=== PATIENT | male | born 1995 | race African-American/Black ===

== ENCOUNTER 2017-02-08 19:27 | Inpatient (IN) | payer OTHER ==
--- NOTE | ~2017-02-08 | PN ---
Unit #: [id number] #: [id number] Patient: REMY RAMIREZ [id number] [facility] [address] [place] [address] [id number] I MR#: [id number] NAME: REMY RAMIREZ ROOM: P202 Age: 21 Sex: M Admission Date: 02/08/2017 : 1995 Attending Physician: Sarthak Nash M.D. Admitting Physician: Sarthak Nash M.D. Primary Care Physician: Primary Care Physician Fadia ACOSTA PROGRESS NOTES DATE OF SERVICE 02/11/2017 DISCUSSION Mr. Remy Ramirez is a 21-year-old male. The patient interviewed, chart reviewed. Obtained information from nursing staff. The patient was compliant, cooperative, redirectable. Mood sad, dysphoric, flat affect. The patient reported making progress. Denied any thoughts of harming self or others. Complete Review of Systems: Unremarkable. MENTAL STATUS EXAMINATION General Appearance: The patient dressed casually. Attention span, concentration: Fair. Oriented in time, place, and person. Mood and affect labile. Speech: Monotone. Thought process: [place]. The patient denied any thoughts of harming self or others. Recent and remote memory: Poor. Insight and judgment: Poor. DIAGNOSIS Mood disorder not otherwise specified. ASSESSMENT/PLAN Advised to continue with current medication and therapeutic protocol. If needed, consider further adjustment of medication. Dictated by... Eric Real/placido TD: 02/12/2017 08:54 JOB #: [id number] Unit #: [id number] #: [id number] Patient: REMY RAMIREZ [facility] PROGRESS NOTES Page 1 of 1 X Sarthak Nash MD PROGRESS NOTE
--- NOTE | ~2017-02-08 | PN ---
Unit #: [id number] #: [id number] Patient: REMY RAMIREZ [id number] [facility] [address] [place] [address] [id number] I MR#: [id number] NAME: REMY RAMIREZ ROOM: P202 Age: 21 Sex: M Admission Date: 02/08/2017 : 1995 Attending Physician: Sarthak Nash M.D. Admitting Physician: Sarthak Nash M.D. Primary Care Physician: Primary Care Physician Fadia JACOBO NOTES DATE OF SERVICE: 02/12/2017 DISCUSSION Remy Ramirez is a 21-year-old male, seen on 02/12/2017. The patient interviewed, chart reviewed, and obtained information from nursing staff. The patient was compliant, cooperative, mood is sad, dysphoric, flat affect, guarded. The patient was able to maintain safe behavior. No aggression. Tolerating medication fairly well. REVIEW OF SYSTEMS Complete review of systems unremarkable. MENTAL STATUS EXAMINATION General appearance, the patient dressed casually. Attention span and concentration, fair. Oriented in time, place, and person. Mood and affect, sad and dysphoric. Speech, monotone. Thought process, concrete. The patient denied any thoughts of harming self or others. Recent and remote memory, poor. Insight and judgment, poor. DIAGNOSIS Mood disorder, not otherwise specified. ASSESSMENT AND PLAN Advised to continue with current medication and therapeutic protocol. If needed, consider further adjustment of medication. Dictated by... Eric Real/hailey TD: 02/14/2017 03:26 JOB #: [id number] Unit #: [id number] #: [id number] Patient: REMY RAMIREZ JIMVASQUEZ PROGRESS NOTES Page 1 of 1 X Sarthak Nash MD PROGRESS NOTE
--- NOTE | ~2017-02-08 | DS ---
Unit #: [id number] #: [id number] Patient: LEONILA RAMIREZ [id number] [facility] [address] [place] [address] [id number] MR#: [id number] NAME: LEONILA RAMIREZ ROOM: [facility] Age: 21 Sex: M Admission Date: 02/08/2017 : 1995 Discharge Date: 02/13/2017 Attending Physician: Sarthak Nash M.D. Primary Care Physician: Primary Care Physician No DISCHARGE SUMMARY REASON FOR ADMISSION Suicidal ideation. DIAGNOSTIC STUDIES LABORATORY RESULTS: Unremarkable except positive for marijuana. HOSPITAL COURSE The patient was admitted to inpatient unit on 02/08/2017 and discharged on 02/13/2017. The patient was treated with group therapy, individual therapy, medication management. The patient responded well with the above modalities of treatment. The patient was subsequently discharged with a plan to follow up in outpatient program. DISCHARGE MEDICATIONS Doxepin 100 mg at bedtime for sleep and Zoloft 50 mg daily for depression. DISCHARGE DIAGNOSES Psychiatric: Mood disorder, not otherwise specified, F32.9; cannabis abuse, moderate, F12.20. Secondary diagnosis: Deferred. Medical diagnosis: None. Stressors: Psychosocial stressors. DISCHARGE INSTRUCTIONS The patient to follow up in outpatient clinic as per health and social care teacher. CONDITION ON DISCHARGE The patient was pleasant and cooperative. Denied any psychotic symptom or any suicidal ideation. PROGNOSIS Guarded. DIET AND ACTIVITY As tolerated. Dictated by... Sarthak Nash M.D. Unit #: [id number] #: [id number] Patient: LEONILA RAMIREZ SZC/modl TD: 02/14/2017 02:14 JOB #: [id number] DISCHARGE SUMMARY Page 1 of 1 X Sarthak Nash MD X DISCHARGE SUMMARY
--- NOTE | ~2017-02-08 | PN ---
Unit #: [id number] #: [id number] Patient: REMY RAMIREZ [id number] [facility] [address] [place] [address] [id number] I MR#: [id number] NAME: REMY RAMIREZ ROOM: P202 Age: 21 Sex: M Admission Date: 02/08/2017 : 1995 Attending Physician: Sarthak Nash M.D. Admitting Physician: Sarthak Nash M.D. Primary Care Physician: Primary Care Physician Fadia ACOSTA PROGRESS NOTES DATE 02/09/2017 DISCUSSION Remy Ramirez is a 21-year-old male, seen on 02/09/2017. The patient interviewed, chart reviewed, and obtained information from the nursing staff. The patient was compliant and cooperative. Mood sad and dysphoric, flat affect, and guarded. The patient withdrawn, isolative. REVIEW OF SYSTEMS Complete review of systems unremarkable. MENTAL STATUS EXAMINATION General appearance: Patient dressed casually. Attention span and concentration, fair. Oriented to place and person. Mood and affect, sad and dysphoric. Speech, monotone. Thought process, concrete. The patient denied any thoughts of harming self or others but guarded. Recent and remote memory, poor. Insight and judgment, poor. DIAGNOSIS Mood disorder, NOS. ASSESSMENT/PLAN Advised to continue with the current medication, a combination of Celexa, trazodone, discontinue Zoloft, if needed consider further adjustment of medication. Dictated by... Eric Real/lacy TD: 02/10/2017 08:37 JOB #: [id number] Unit #: [id number] #: [id number] Patient: REMY RAMIREZ JIMVASQUEZ PROGRESS NOTES Page 1 of 1 X Sarthak Nash MD PROGRESS NOTE
--- NOTE | ~2017-02-08 | HP ---
Unit #: [id number] #: [id number] Patient: REMY RAMIREZ [id number] [place] [address] [id number] MR#: [id number] NAME: REMY RAMIREZ ROOM: P202 Age: 21 Sex: M Admission Date: 02/08/2017 : 1995 Attending Physician: Sarthak aNsh M.D. Admitting Physician: Sarthak Nash M.D. Primary Care Physician: Primary Care Physician No HISTORY AND PHYSICAL HISTORY OF PRESENT ILLNESS Remy is a 21 year old, admitted to [address] [place] [address] with depression and verbalizing wanting to hurt himself. PAST MEDICAL HISTORY Nothing significant. PAST SURGICAL HISTORY Nothing reported. ALLERGIES Sulfa. SOCIAL HISTORY He smokes cigars on a daily basis, admits to drinking alcohol on occasion and uses marijuana daily. FAMILY HISTORY Medically noncontributory. REVIEW OF SYSTEMS CONSTITUTIONAL: No fever or chills. HEENT: Denies any sore throat, ear pain or runny nose. CARDIOVASCULAR: Denies chest pain, irregular heart rhythm or palpitations. CHEST: Denies shortness of breath or cough. No hemoptysis. GASTROINTESTINAL: Denies nausea, vomiting, diarrhea or chronic constipation. ENDOCRINE: Denies history of increased thirst or urination. No recent significant weight loss or gain. GENITOURINARY: Denies dysuria, frequency, or hematuria. SKIN: Denies any rashes. HEMATOLOGIC: Denies history of increased bleeding or bruising. MUSCULOSKELETAL: Denies any hot, swollen joints. No generalized muscle pain. NEUROLOGIC: Denies problems with vision or speech. No frequent, severe headaches. No numbness, tingling or weakness in any extremities. Denies loss of bladder or bowel control. CURRENT MEDICATIONS 1. Desyrel 100 mg q.h.s. 2. Zoloft 50 mg q.h.s. 3. Trazodone p.r.n. 4. Milk of magnesia p.r.n. Unit #: [id number] #: [id number] Patient: REMY RAMIREZ 5. Maalox p.r.n. 6. Tylenol p.r.n. 7. Nicotine patch 21 mg daily PHYSICAL EXAMINATION GENERAL: Alert, well-nourished, no apparent distress. VITAL SIGNS: Blood pressure 105/52, heart rate 60, respirations 16, and temperature 98.6. WEIGHT: 174 pounds. HEIGHT: 6 feet 0 inches. SKIN: Warm and dry without rash or lesion. HEENT: Normocephalic. TMs not viewed. Oral and nasal passages clear. Conjunctivae clear. PERRLA. EOMs intact. NECK: Supple without lymphadenopathy or thyromegaly. HEART: Regular rate and rhythm without murmur. LUNGS: Clear. ABDOMEN: Soft, nontender. : Not done. EXTREMITIES: No evidence of cyanosis, clubbing or edema. Moves all without focal deficit. NEUROLOGICAL: Grossly within normal limits. Cranial Nerves: II: Visual lin are intact. III, IV AND : Extraocular movements are intact. Pupils are equal, round and reactive to light. V: Facial sensation is grossly normal. VII: Facial movements and expression are normal. VIII: Auditory acuity grossly intact. IX, X: Uvula is midline. Phonation is normal. XI: Patient shrugs shoulders and turns head normally. XII: Tongue protrudes in the midline. Sensory and Motor Function: Sensory and motor sensation is grossly normal. Motor: moves all extremities well. Coordination: Gait is normal. Deep Tendon Reflexes: Intact. IMPRESSION Psychiatric admission. RECOMMENDATIONS Psychiatric, per psychiatrist. MEDICAL I see no contraindications to participating in facility's activities. MEDICAL PROGNOSIS Good. MEDICAL CONDITION Stable. Dictated by... Kayla Whitlock P.A.-C. for Eric Reyes/lacy TD: 02/10/2017 06:15 JOB #: [id number] Unit #: [id number] #: [id number] Patient: REMY RAMIREZ HISTORY AND PHYSICAL Page 1 of 1 X Kayla Whitlock HISTORY AND PHYSICAL
--- NOTE | ~2017-02-08 | PN ---
Unit #: [id number] #: [id number] Patient: REMY RAMIREZ [id number] [facility] [address] [place] [address] [id number] I MR#: [id number] NAME: REMY RAMIREZ ROOM: P202 Age: 21 Sex: M Admission Date: 02/08/2017 : 1995 Attending Physician: Sarthak Nash M.D. Admitting Physician: Sarthak Nash M.D. Primary Care Physician: Primary Care Physician Fadia JACOBO NOTES DATE OF SERVICE 02/10/2017 DISCUSSION Remy Ramirez is a 21-year-old male seen on 02/10/2017. Patient interviewed, chart reviewed, I obtained information from nursing staff. Patient reported trazodone is not working, still having trouble sleeping. Withdrawn, isolative, flat affect; sad, dysphoric mood. Patient tolerating medication fairly well. COMPLETE REVIEW OF SYSTEMS Unremarkable. MENTAL STATUS EXAMINATION GENERAL APPEARANCE: Patient dressed casually. ATTENTION SPAN AND CONCENTRATION: Fair. Oriented in time, place and person. MOOD AND AFFECT: Sad, dysphoric. SPEECH: Monotone. THOUGHT PROCESS: [place]. Patient denied any thoughts of harming self or others, but withdrawn, isolative, sad affect, sad, dysphoric. RECENT AND REMOTE MEMORY: Poor. INSIGHT AND JUDGMENT: Poor. DIAGNOSIS Mood disorder, NOS ASSESSMENT/PLAN Advised to discontinue trazodone and start patient on doxepin 100 mg at bedtime. If needed, consider further adjustment in medication. Dictated by... Eric Real/rod TD: 02/10/2017 23:05 JOB #: [id number] Unit #: [id number] #: [id number] Patient: REMY RAMIREZ D[facility] PROGRESS NOTES Page 1 of 1 X Sarthak Nash MD PROGRESS NOTE
--- NOTE | ~2017-02-08 | PA ---
Unit #: [id number] #: [id number] Patient: REMY RAMIREZ 101[address] [place] [address] [id number] MR#: [id number] NAME: REMY RAMIREZ ROOM: P202 Age: 21 Sex: M Admission Date: 02/08/2017 : 1995 Date of Assessment: 02/09/2017 Attending Physician: Sarthak Nash M.D. Admitting Physician: Sarthak Nash M.D. Primary Care Physician: Primary Care Physician No PSYCHIATRIC ASSESSMENT INFORMANTS The patient reliability, fair informant and chart reliability, good. CHIEF COMPLAINT Suicidal ideation. HISTORY OF PRESENT ILLNESS Mr. Remy Ramirez is a 21-year-old male, presented with depression, suicidal ideation, and marijuana abuse. The patient reports a history of previous treatment at [facility] and [facility] in the past in 2011 for similar problems. The patient presented due to suicidal ideation, increase in depression, feeling more stressed off from his medication, and reported daily thoughts about being . The patient unable to contract for safety, feeling of hopelessness and worthlessness, and suicidal ideation. The patient reported tired of living. The patient also admitted using marijuana. Denied any homicidal ideation or psychotic symptom. Needing inpatient admission at this time for psychiatric stabilization. PAST PSYCHIATRIC HISTORY Remarkable for history of previous treatment at [facility] and [facility] in the past in 2011 with similar complaints. FAMILY HISTORY AND SOCIAL HISTORY The patient has a poor support system. No known history of any abuse. History of mental illness in mother and mental illness in paternal grandmother and biological father, details unknown at this time. MEDICAL HISTORY Unremarkable for any chronic medical illness. Musculoskeletal; muscle strength and tone, no atrophy or abnormal movement. Gait normal. MEDICATION HISTORY None. ALLERGIES No known drug allergies. SUBSTANCE ABUSE HISTORY The patient reported alcohol use, age of onset 15; tobacco, age of onset 13; and marijuana, age of onset 14. The patient denied any withdrawal symptoms. Unit #: [id number] #: [id number] Patient: REMY RAMIREZ REVIEW OF SYSTEMS HEENT: Eyes, clear. Ears, nose, mouth, and throat; clear. CARDIOVASCULAR: Unremarkable. RESPIRATORY: Unremarkable. GI: Unremarkable. : Unremarkable. SKIN: Unremarkable. LYMPH NODE: Unremarkable. NEUROLOGIC: Unremarkable. ENDOCRINE: Unremarkable. HEMATOLOGIC: Unremarkable. ALLERGIC/IMMUNOLOGIC: Unremarkable. MUSCULOSKELETAL: Muscle strength and tone, no atrophy or abnormal movement. Gait normal. MENTAL STATUS EXAMINATION CONSTITUTIONAL: Measurement of vital signs; temperature 98.1, heart rate 92, respiratory rate 20, and blood pressure 105/52. Height 6 feet and weight 174 pounds. GENERAL APPEARANCE: The patient dressed casually. The patient did not show any facial deformity. MUSCULOSKELETAL: Please see above. PSYCHIATRIC EXAMINATION Description of speech; regular rate, normal volume, normal articulation, and coherent. Description of thought process, goal directed. Description of association, intact. Description of abnormal psychotic thinking; the patient denied any hallucinations or delusions, but having suicidal ideation, depression, and substance abuse. Description of the patient's judgment: Concerning everyday activity, poor. Social situation, poor. Concerning psychiatric condition, poor. Complete mental status examination; oriented in time, place, and person. Recent and remote memory, fair. Attention span and concentration, fair. Language, able to name object and repeat phrases. Fund of knowledge, aware of current event and passive vocabulary intact. Mood and affect, sad and dysphoric. Insight and judgment, fair to poor. ASSETS AND LIABILITIES Assets, the patient is articulate and able to take care of his ADL. Liability, history of depression and substance abuse. ADMITTING DIAGNOSES Psychiatric: Major depressive disorder, recurrent, severe, F33.2 and cannabis abuse, moderate, F12.20. Secondary diagnosis: Deferred. Medical diagnosis: None. Stressors: Psychosocial stressors. PSYCHIATRIC PLAN AND TREATMENT GOAL AND DISCHARGE PLAN 1. Advised to admit the patient on the inpatient unit. Provide safe, supportive, and structured environment. 2. Ordered labs; CBC, CMP, UA, and UDS. 3. Precaution for aggression and self-harm. 4. The patient to attend all the programing on the inpatient unit. The Unit #: [id number] #: [id number] Patient: REMY RAMIREZ patient to start with Zoloft and Desyrel combination and trazodone p.r.n. If needed, consider further adjustment of medication. We will continue to follow. TREATMENT GOAL To attain euthymic mood, gain insight into his problem, and learn coping skills. DISCHARGE PLAN Plan to stabilize the patient and consider followup in outpatient program. ESTIMATED LENGTH OF STAY 5 days. Dictated by... Eric Real/hailey TD: 02/09/2017 16:34 JOB #: [id number] PSYCHIATRIC ASSESSMENT Page 1 of 1 X Sarthak Nash MD X PSYCHIATRIC ASSESSMENT
[2017-02-09 09:34] LABS: BASOPHIL% 0.6 % (0-2.5); EOSINOPHIL# 0.1 X10e3 (0-0.7); EOSINOPHIL% 1.6 % (0.0-7.0); HEMATOCRIT 46.5 % (38.0-50.0); HEMOGLOBIN 15.5 gm/dL (13.0-16.0); LYMPHOCYTE# 1.8 X10e3 (1.0-3.5); LYMPHOCYTE% 30.5 % (17.0-45.0); MEAN CELL VOLUME 95.2 FL (83-96); MEAN CORPUSCULAR HEMOGLOBIN 31.7 PG (28-34); MEAN CORPUSCULAR HGB CONC 33.3 g/dL (30-36); MEAN PLATELET VOLUME 9.6 FL (6.5-11.5); MONOCYTE# 0.5 X10e3 (0-1.0); MONOCYTE% 9.2 % (3.0-12.0); NEUTROPHIL# 3.3 X10e3 (1.5-7.1); NEUTROPHIL% 58.1 % (40-75); PLATELET COUNT 194 X10e3 (140-420); RED BLOOD COUNT 4.88 X10e (3.90-5.60); RED CELL DISTRIBUTION WIDTH 12.9 % (11.0-15.5); WHITE BLOOD COUNT 5.7 X10e3 (4.0-10.5)
[2017-02-09 09:37] LABS: DIFF IND NO
[2017-02-09 09:46] LABS: ALBUMIN SERUM 4.3 g/dL (3.5-5.0); BILIRUBIN,TOTAL 1.8 mg/dL (0.2-2.0); CALCIUM SERUM 9.4 mg/dL (8.4-10.2); GLOM FILT RATE Estimated 123.3 mL/min (>60); POTASSIUM 4.1 mmol/L (3.5-5.1); PROTEIN TOTAL SERUM 6.7 g/dL (6.0-8.3)
[2017-02-10 09:35] LABS: URINE BILIRUBIN NEG (NEG); URINE BLOOD NEG (NEG); URINE COLOR YELLOW; URINE GLUCOSE NEG (NEG); URINE KETONE TRACE (NEG); URINE LEUKOCYTE ESTERASE 1+ (NEG); URINE NITRATE NEG (NEG); URINE PH 5.5 (5-8); URINE PROTEIN NEG (NEG); URINE SPECIFIC GRAVITY 1.024 (1.003-1.035); URINE UROBILINOGEN 0.2 MG/DL (NEG)
[2017-02-10 09:51] LABS: URBCS1 AUWI 0-2 /[HPF] (0-2); URINE BACTERIA AUWI NEG (NEGATIVE); URINE SQUAMOUS EPITHELIAL CELL FEW /[HPF]; UWBCS1 AUWI 25-50 (0-5)
[2017-02-10 10:12] LABS: U HYALINE CASTS AUWI 0-2 /[LPF]; URINE MUCUS PRESENT
[2017-02-10 10:13] LABS: URINE APPEARANCE CLOUDY
[2017-02-10 10:51] LABS: AMPHETAMINE NEG (NEG); BARBITURATES NEG (NEG); BENZODIAZEPINES NEG (NEG); COCAINE NEG (NEG); MARIJUANA POS (NEG); OPIATES NEG (NEG); TRICYCLIC ANTIDEPRESSANTS NEG (NEG); U METHADONE NEG (NEG)
== END 2017-02-13 11:02 | disposition home or self-care (01) | DRG 885 ==
LOC: P1S 19:27 → P2S 21:43
PROVIDERS: Psychiatry & Neurology Psychiatry
DX: F39 Unspecified mood [affective] disorder (principal); R45.851 Suicidal ideations; F12.20 Cannabis dependence, uncomplicated; Z88.2 Allergy status to sulfonamides
CPT/HCPCS: 80053; 80307; 81003; 85025